=== PATIENT | female | born 1990 | race Caucasian/White ===

== ENCOUNTER → 2017-11-03 07:55 | Outpatient (CLI) | payer OTHER, SELFPAY ==
[2017-11-09 14:23] LABS: HPV Reflexed? NOT INDICATED
== END ==
PROVIDERS: Visit Provider Obstetrics & Gynecology
DX: Z12.4 Encounter for screening for malignant neoplasm of cervix (principal)
CPT/HCPCS: 88175; G0145

== ENCOUNTER → 2019-05-02 | Outpatient (CLI) | payer OTHER, SELFPAY ==
[2019-05-02 18:08] LABS: Chlamydia Trachomatis by PCR Negative (Negative); Neisserai gonorrhoeae by PCR Negative (Negative); Probe Check PASS; Sample Adequacy Control PASS; Specimen Processing Control PASS
== END | disposition home or self-care (01) ==
LOC: LABSPEC 15:49
PROVIDERS: Visit Provider Obstetrics & Gynecology
DX: Z11.3 Encounter for screening for infections with a predominantly sexual mode of transmission (principal)
CPT/HCPCS: 87491; 87591

== ENCOUNTER → 2019-05-18 16:07 | Outpatient (CLI) | payer OTHER, SELFPAY ==
[2019-05-18 16:57] LABS: Color, Urine Yellow (Yellow); Glucose, Dipstick Normal (Normal); Ketone-Dipstick Negative (Negative); Leukocyte Esterase-Dipstick Negative /ul (Negative); Nitrite-Dipstick Negative (Negative); Occult Blood-Urine Negative /ul (Negative); Protein-Dipstick Negative (Negative); Urine Bilirubin Dipstick Negative (Negative); Urine Clarity Clear (Clear); Urine Urobilinogen Normal (Normal)
[2019-05-18 17:01] LABS: Absolute Lymphocyte Count 1.97 X10^3/uL (0.83-4.51); Absolute Neutrophil Count 9.7 X10^3/uL (2.0-7.7); Basophil# 0.03 X10^3/uL; Basophil% 0.2 % (0-1); Eosinophil# 0.08 X10^3/uL; Eosinophils% 0.6 % (0-5); Hematocrit 39.4 % (37-47); Lymphocyte # 1.97 X10^3/ul (4.0); Lymphocyte % 15.6 % (19-41); Mean Corpuscular Hgb 27.5 pg (27.0-32.0); Mean Corpuscular Volume 83.5 fL (81-99); Mean Platelet Vol. 9.9 fl (6.2-12.0); Monocyte# 0.83 X10^3/uL; Monocyte% 6.6 % (0-10); NRBC Flagged by Analyzer 0 % (0-5); Neutrophil # 9.68 X10^3/uL (2.7-7.7); Neutrophil % 76.8 % (47-70); Platelet Count 263 K/mm3 (150-450); RBC Distribution Width CV 13.4 % (11.6-14.6); RBC Distribution Width SD 40.8 fl (35.1-43.9); Red Blood Count 4.72 M/mm3 (4.2-5.4); White Blood Count 12.6 K/mm3 (4.4-11.0)
[2019-05-18 17:11] LABS: Amphetamine Urine VISTA NEGATIVE (<1000 ng/mL); Barbiturate Urine VISTA NEGATIVE (< 200 ng/mL); Benzodiazepine Urine VISTA NEGATIVE (< 200 ng/mL); Cocaine Urine VISTA NEGATIVE (< 300 ng/mL); Ecstacy Urine VISTA NEGATIVE (< 500 ng/mL); Methadone Urine VISTA NEGATIVE (< 300 ng/mL); PCP Urine VISTA NEGATIVE (< 25 ng/mL); THC Urine VISTA NEGATIVE (< 50 ng/mL); Vista UDS pH Range 6
[2019-05-18 17:32] LABS: Thyroid Stim Hormone (TSH) 0.67 uIU/mL (0.358-3.74)
[2019-05-19 00:26] LABS: Prenatal RPR NONREACTIVE (NONREACTIVE)
[2019-05-19 09:24] LABS: HIV - WCH Non-Reactive (Nonreactive); Hepatitis B Surface Antigen Non-Reactive (Nonreactive); Hepatitis C Antibody Non-Reactive (Nonreactive); Rubella IgG 88.4 IU/mL; Vitamin D,25 Hydroxy 23.2 ng/mL
== END ==
PROVIDERS: Visit Provider Obstetrics & Gynecology
DX: Z34.81 Encounter for supervision of other normal pregnancy, first trimester (principal)
CPT/HCPCS: 36415; 80307; 81002; 82306; 84443; 85025; 86703; 86762; 86803; 87340

== ENCOUNTER → 2019-09-27 08:43 | Outpatient (CLI) | payer OTHER, SELFPAY ==
[2019-09-27 10:46] LABS: Hematocrit 34.5 % (37-47); Hemoglobin 11.3 g/dL (12.0-15.0); Mean Corp Hgb Conc 32.8 g/dL (32-36); Mean Corpuscular Hgb 29.7 pg (27.0-32.0); Mean Corpuscular Volume 90.8 fL (81-99); Mean Platelet Vol. 9.8 fl (6.2-12.0); Platelet Count 196 K/mm3 (150-450); RBC Distribution Width CV 13.1 % (11.6-14.6); RBC Distribution Width SD 42.6 fl (35.1-43.9); White Blood Count 10.3 K/mm3 (4.4-11.0)
[2019-09-27 10:55] LABS: Glucose Challenge Gest 1H 50g 103 mg/dL (70-140)
[2019-09-27 10:58] LABS: Vitamin D,25 Hydroxy 50.6 ng/mL
== END ==
PROVIDERS: Visit Provider Obstetrics & Gynecology
DX: Z34.82 Encounter for supervision of other normal pregnancy, second trimester (principal)
CPT/HCPCS: 36415; 82306; 82950; 85027; 86850

== ENCOUNTER 2019-11-29 17:45 | Inpatient (IN) | payer OTHER, SELFPAY ==
[2019-11-29] VITALS (10 sets, daily range): BP systolic 93–119; BP diastolic 55–75; PULSE 59–76; TEMP 36.8–37.9; O2SAT 97–98; BMI 24.3
[2019-11-29 17:47] LABS: ROM Internal Control Test YES-OK TO RESULT pt. (Internal QC)
[2019-11-29 17:48] LABS: ROM Patient Test POSITIVE (Negative)
[2019-11-29] MEDS: 0.9% Saline Lock 10 ML Syringe IV ×2 (18:25→23:02)
[2019-11-29 18:43] LABS: Absolute Neutrophil Count 8.9 X10^3/uL (2.0-7.7); Basophil# 0.02 X10^3/uL; Basophil% 0.2 % (0-1); Eosinophil# 0.03 X10^3/uL; Eosinophils% 0.2 % (0-5); Hematocrit 40.1 % (37-47); Hemoglobin 13.6 g/dL (12.0-15.0); Lymphocyte % 17.5 % (19-41); Mean Corp Hgb Conc 33.9 g/dL (32-36); Mean Corpuscular Hgb 28.9 pg (27.0-32.0); Mean Corpuscular Volume 85.3 fL (81-99); Mean Platelet Vol. 10.2 fl (6.2-12.0); Monocyte# 0.94 X10^3/uL; Monocyte% 7.8 % (0-10); NRBC Flagged by Analyzer 0 % (0-5); Neutrophil # 8.88 X10^3/uL (2.7-7.7); Neutrophil % 73.8 % (47-70); Platelet Count 219 K/mm3 (150-450); RBC Distribution Width CV 12.5 % (11.6-14.6)
[2019-11-29 19:58] LABS: Group B Strep DNA By PCR Negative (Negative); Internal Control PASS; Probe Check PASS; Specimen Processing Control PASS
--- NOTE | 2019-11-29 20:27 | PCM.HPOB.BLA ---
<Emelia Diehl - Last Filed: 12/01/19 06:48> - Problem List (1) 36 weeks gestation of Status: Acute (2) Spontaneous rupture of amniotic membranes Status: Acute History and Physical Date of Admission: 11/29/19 AC ANTEPARTUM RECORD - HISTORY AND PHYSICAL (11/29/2019) Name: KARENA JULIAN OB Physician: SILVESTRE 's Physician: PED ELECTRIC LINEMAN ...................................................................... : 1990 Age: 29 Address: [address] [place] [address] Phone: H) [phone] Insurance Carrier: [facility] ([place], [place]) [id number] Emergency Contact: GISELL IESHA [phone] ...................................................................... This is a 29y old presenting at 36w6d with SROM today at approximately 1500. has been uneventful. Final SOBIA: 12/21/19 By Ultrasound: 9 weeks 0 days PARITY: (G-Total Pregnancies P-Fullterm,Premature,Induced AB,Spont AB, Ectopics, Multiple,Living) SOBIA CONFIRMATION: By LMP: 03/16/19 By First Ultrasound Exam: 12/18/19 Final SOBIA: 12/21/19 BLOOD TYPE: O negative GBS: pending 1H GTT: 103 Rublla titer (>10 immune)-- immune Hepatatis B lillian AG/Hepatitis C AB/HIV/RPR-- non-reactive CULTURES: GBS pending, GC/CT-negative OB PROBLEM LIST: Encouraged childbirth and classes EPDS = 3 has a neice born with cleft palate 's niece and nephew born with Craniosynostosis Rh negative and Rhogam given 09/27/19 Vitamin D deficiency, added 4000iu OTC daily, to recheck with 28wk labs WANTS AFP, declines CF testing -Declines MSAFP on 07/12/19 ALLERGIES: No Known Drug Allergies MEDICATIONS: Supplement (s) [No Strength] [employer] PNV Vitamin D3 4,000 unit capsule Take one a day SOCIAL HISTORY: Smoking - Never Alcohol Use - denies drinking Diet - balanced Diet Lifestyle - Exercise - regular 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 Illicit Drug Use - denies use of street drugs Sexual Activity - Residence - lives with Place of - [place], [place] Hours Worked - FT Spouse-Sig Other Name - Gisell Spouse-Sig Other Occupation - Sales for [employer] Spouse-Sig Other Phone No - [phone] PRIOR DELIVERY HISTORY DEL DATE GEST LAB WT LB WT OZ TYPE ANES LABOR TX ANTEPARTUM FLOW CHART VISIT GE RTC FU F F AZ U U DATE WK MD WKS HT PN HR M SS BP ED WT AZ GL D EF ST __ ____ ___ __ __ ___ __ __ __ ___ __ __ __ ___ __ 08 Nov SHM 1 36 V + + 102/46 0 133 tr - Oct SHM 2 33 + + 118/60 0 131 - - 11 Nov 13 SHM 2 30 + + 116/68 0 130 - - 28 Oct 11 SHM 2 29 V + + 110/58 0 130 - - 14 Oct 09 SHM 4 28 ? + + 96/58 0 128 - 2+ Sep 06 SHM 4 26 ? + + 110/70 0 127 tr - August 02 SHM 4 20 + + 110/78 0 123 tr - Jun 29 SHM 4 16 V + + 120/64 0 123 tr - Jun 27 SHM 2 on O 114/66 0 119 31 May 25 CH 4 + 112/62 118 04 May 22 SHM 4 ? on 116/73 0 118 - - ANTEPARTUM NOTE(S): Nov 22 2019: feeling well. Nov 11 2019: see note Oct 24 2020: Oct 11 2019: no complaints expressed Sep 26 2020: see note Sep 05 2020: glucola given August 08 2020: comp u/s today Jul 12 2019: doing well, declines MSAFP testing Jun 23 2020: Jun 13 2020: May 17 2020: COMPREHENSIVE ANTEPARTUM NOTE(S): Nov 22 2019: Independence Frausto improved from prior. Started packing her hospital bag. Has male and female names picked out. No complaints. Defer GBS to next week as she is 35.6 today. Nov 11 2019: Karena is here for visit. She has noticed more cramping since going back to school. Rest and increased po fluids help. Reviewed PTL. States no sx of PTL. FM and SROM reviewed. GBS next visit with pelvic exam. LMT Nov 11 2019: Reviewed adequate hydration, emptying bowel and bladder as needed to reduce potential Independence-Frausto precautions. PTL precautions. GBS next visit. Oct 25 2019: Karena is here for visit at 31.6 w gest. Feeling well. Baby active. Took last week's office Class. Sleeping well. No c/o. DRC Oct 25 2019: PTL, FM precautions. Discussed vacuum indications, risks, benefits, role of C/S as alternative for vacuum indications. Oct 11 2019: Karena is here for a PNV. She is doing great. Good FM. No edema noticed. No complaints or concerns expressed at this time. MK Oct 11 2019: Reviewed normal glucola, cbc. Plans Tdap . Sep 27 2019: Karena is here for a PNV. 28 week labs drawn today. Good FM. 0 edema. Pt states that she felt like passing out on her way here, most likely from the Glucola drink. No other complaints or concerns. MK Sep 27 2019: Rhogam is given today. LMT Sep 27 2019: PTL, FM precautions. Discussed childbirth spacing and PPBC, condoms planned. Glucola, Rhogam today. Sep 06 2019: Discussed labor analgesia. Considering epidural in labor. Sleeping ok. Reviewed Rh negative, indications for Rhogam. Independence Frausto discussed. Aug 09 2019: SEX UNKNOWN. EFW 85th%. Posterior placenta, ok for . Discussed round ligament pain, safe sleep. Has daily FM. Jul 12 2019: Karena reports that she and decided not to have MSAFP. Declines today 07/12/19. LMT Jul 12 2019: No further spotting or bleeding. No clot visualized on US today. Fetus active, FHR 156bpm. Discussed movement, anticipated weight gain 25-35#. Jun 24 2019: Karena is feeling better with less nausea. Occassional cramping, brown spotting. Has not had IC. US prior to this visit. Drinkng water very well. kbm Jun 24 2019: US confirms FHR wnl, perigestational bleed abutting cervix 2.5cm. Appears clotted. Bleeding precautions reviewed. Maintain pelvic rest, low impact and low to moderate intensity physical activity only. Jun 14 2019: Karena is here for nurse visit to for viability. Noticed some spotting after running home in the rain. Light pinkish to brown spotting noted. Resolved now. FHT's easily obtained in the 160's. She is asking since she is here may she be seen instead of telehealth visit tomorrow? Ok per CH and she will see her in office today. LMT Jun 14 2019: Came in today for FHR check and changed until today. Was having spotting over the weekend after a heavy run and was worried. FHR found today very easily and reassured. 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 Has been able to lounge around and take it easy. Reviewed first trimester labs being WNL with exception of low Vitamin D. Will start taking 4000iu OTC and will recheck at 28wk labs. O negative blood type with rhogam needed at 28 wks and PP. Discussed in length antibodies if baby is + and needing protection for future pregnancies. Reports eczema is better with the sunlight. Discussed a happy lamp if needed to see if that could help and the vit D might actually have benefits for her skin. May or may not want additional genetic testing at 16 weeks. Will let us know at the beginning of her appt. To have appt in 4 weeks and as a first time mom would prefer it to be in person to be able to get FHR check since likely wont be having FM yet. Reviewed office still being open and nurse triage line with provider sales operations associate 06/10. Left feeling a lot better and very grateful for appt - May 18 2019: Karena is here for her NOB visit at 9 w 0 d, she is a with an SOBIA of 12/21/2019. , Gisell, accompanies her today; they are both happy about the and excited to have had an US today. Delivery at [facility] is planned, she is undecided about an epidural, and she will breastfeed. Office and childbirth classes discussed and encouraged. Office practice patterns discussed, including labs that will be collected today. Emergencies/danger signs to report, round ligament pain, how to contact the office after hours, reporting a suspected UTI, and common OTC medications approved/not approved for use during . Karena states that she has some occasional nausea, but states that as long as she eats every few ours, she does pretty well. Denies emesis. Encouraged to continue small frequent meals with protein included throughout the day. try carb rich foods when nauseated, and to drink at least one gallon of water per 24 hours. Karena is a life long non-smoker, and she denies use of drugs or ETOH. She takes an OTC vitamin containing DHA and states that she is tolerating this well. Genetic Screening form completed, Gisell has a niece with Cleft Palate, and a niece and nephew (siblings) born with Craniosynostosis. She wants to have AFP drawn, and declines CF testing; consent signed as such. Karena denies a hx of depression or anxiety. EPDS today = 3. Karena works out 3-4 times a week, reviewed lifting restrictions, and exercise guidelines. Kegel exercises and how/why to do them explained. water and dietary needs reviewed, including caloric needs, recommended weight gain, limiting empty calories, and limiting caffeine to one cup a day. Printed guide for food safety during provided with review. Karena eats a well balanced diet, and drinks water exclusively. She states that she understands all information provided during NOB visit, and that she has no questions following same. AW May 18 2019: labs for drawn reviewed. Plans msAFP, Quad screen. May 02 2019: Karena is being seen for missed menses visit. First . LMP 1--20. Pt is about 6 weeks and 5 days. SOBIA 10-7-20. Pap due . Cultures sent on urine. Medications and allergies are up to date. information given and Emelia Diehl to review. AM May 02 2019: Missed menses appointment today with +UPT in office. Known LMP of 1--20 giving her an SOBIA of 10-7-20 with GA 6w4d. This is her first . She already taking prenatals and is a non-smoker. Practice orientation, midwifery care with OB collaboration, missed menses packet reviewed and well as client services coordinator packet. Will bring supplements in to review with provider at next visit. Will return in 2 weeks for dating US, NOB RN visit, labs and PNV. - Mar 11 2019: Karena is being seen for annual. LMP 12--19. Menses monthly and regular. Last pap 2018 WNL. Pt states she would like to discuss . She has hx of low progesterone. Depression screening total is 1. Medications and allergies are up to date. AM Mar 11 2019: as above. Previously saw religious leader who diagnosed low progesterone and pt took daily progesterone kirby. She is uncertain as to the etiology. Reports low progesterone symptoms however have resolved since then and she has not used supplementation for some time. Continues exercising regularly, is not running in the winter however. Eats well balanced diet of whole foods. Started MVI. No plans for travel and no recent travel. No animals at home. [facility] REVIEW OF SYSTEMS: GENERAL - Denies fever, or chills SKIN - Denies rash, new skin lesions, or change in moles EYES - Denies blurred vision, or change in visual acuity EARS - Denies ear pain, or difficulty hearing NOSE - Denies nasal congestion, discharge, or bleeding MOUTH - Denies sore throat, or difficulty swallowing NECK - Denies pain or swelling RESPIRATORY - Denies shortness of breath, cough, wheezing CARDIOVASCULAR - Denies palpitations, chest pain, orthopnea, PND, peripheral edema, syncope or claudication GASTROINTESTINAL - Denies nausea, vomiting, diarrhea, constipation, Denies abdominal pain, melena and or bright red blood GENITOURINARY - Denies dysuria, frequency of urination, urgency, or hesitancy MUSCULOSKELETAL - Denies joint or muscle pain, or back pain NEUROLOGICAL - Denies localized numbness, weakness, or tingling PSYCHIATRIC - Denies depression, anxiety, substance abuse or suicide attempts ENDOCRINE - Denies heat or cold intolerance, weight loss or gain, increasing thirst HEMATO-IMMUNOLOGIC - Denies easy bruising, bleeding, oral ulcerations or recurrent infections GENETICS SCREENING: Age 35+ years: No Thalassemia: No Neural Tube Defect: No Down Syndrome: No SIMRAN-SACHS: No Sickle Cell Disease: No Hemophilia: No Musc. Dystrophy: No Cystic Fibrosis: No-declines screening [place]arrant Chorea: No Mental Retardation: No Fragile X: No Other genetic: FOB's niece cleft palate Other defects: FOB's niece cleft palate SABs/still births: No Drugs since LMP: No INFECTION HISTORY: High risk AIDS: No High risk Hepatitis: No Exposed to TB: No Exposed to Herpes: No Rash/viral illness since LMP: No History of STD: No MENSTRUAL HISTORY: *Menses Amount/Duration: 6 daysMenses Regularity: regularFrequency: monthlyMenarche (Age Onset): 12* PAST SUMMARY: PARITY: 1. Total Pregnancies............ 1 2. Full Term Pregnancies........ 0 3. Premature.................... 0 4. Abortions - Induced.......... 0 5. Abortions - Spontaneous...... 0 6. Ectopics..................... 0 7. Multiple Births.............. 0 8. Living Children.............. 0 GENERAL PHYSICAL EXAMINATION: 29y old female in no acute distress VS: VSS HEENT: NC/AT Heart: RRR without rubs or gallops Lungs: CTA x 2 Abdomen: Gravid PELVIC EXAMINATION: Per RN /50/-2 moderate posterior A/P: Admit with SROM at 1500. Clear fluid noted. GBS to be collected with antibiotic prophylaxis orders given. Plans in place for . <Aby Julian - Last Filed: 12/02/19 08:15> History and Physical Agreed with above documentation and plan. 29 yo at 36/6w admitted for premature rupture of membranes. uncomplicated otherwise.
[2019-11-29] MEDS: Oxytocin 30 units/NS 500 ml 30 UNITS/500 ML IV.SOLN IV (23:02)
[2019-11-29] MEDS: Lactated Ringers 1,000 ML 50 ML IV (23:02)
[2019-11-30] VITALS (25 sets, daily range): BP systolic 97–126; BP diastolic 53–75; PULSE 66–90; RESP 14–16; TEMP 36.4–37.2; O2SAT 94–99
[2019-11-30] MEDS: fentaNYL 100 MCG/2 ML Ampul IV ×4 (03:04→06:57)
[2019-11-30] MEDS: 0.9% Saline Lock 10 ML Syringe IV ×5 (03:04→06:57)
[2019-11-30] MEDS: Ondansetron 4 MG/2 ML Vial IV (05:29)
--- NOTE | 2019-11-30 07:49 | PCM.PN.OB ---
<Emelia Diehl - Last Filed: 12/01/19 06:49> Patient Problems: Active and Suspected Problems 36 weeks gestation of (Acute) Spontaneous rupture of amniotic membranes (Acute) Subjective: Having constant pressure and the urge to push. Pain is a 9/10 with contractions in her lower back. Objective: VSS. SVE 10/100/+2. UC Q1-4m. FHR baseline 135, +accels, variable decels, moderate variability - Physical Exam Vitals/I&O's: Vital Signs Temp Pulse Resp BP Pulse Ox 97.7 F L 69 14 114/69 97 12/01/19 03:52 12/01/19 03:52 12/01/19 03:52 12/01/19 03:52 11/30/19 11:36 Oxygen Delivery Method Room Air Weight: 60.328 kg Body Mass Index (BMI) 24.3 Intake and Output for Last 24 Hours 11/29/19 11/30/19 12/01/19 23:59 23:59 23:59 Intake Total 1.6 / 1.6 1905.10 / 1905.10 Output Total 400 / 400 900 / 900 Balance -398.4 / -398.4 1005.10 / 1005.10 General: Alert, Oriented x3, Cooperative HEENT: Atraumatic, PERRLA, EOMI, Normocephalic Neck: Supple, No JVD, Negative Carotid Bruits Lungs: Clear to auscultation, Normal air movement Cardiovascular: Regular rate, No murmurs Abdomen: Bowel Sounds Present, Soft, Non Tender, Gravid Extremities: No edema, Capillary Refill Less than 3 Seconds Skin: No rashes, No breakdown Musculoskeletal: No Tenderness to Palpation of Joints or Extremities Neurological: Cranial nerves II-XII grossly intact Psych/Mental Status: Normal Affect, Appropriate Laboratory Results 11/30/19 12:00: Screen NEGATIVE, Baby's Blood Type O POSITIVE, Baby's CHUNG NEGATIVE Current Medications Acetaminophen (Tylenol) 1,000 mg PO Q8H PRN PRN PRN Reason: Pain Score 1-3/10 Last Admin: 12/01/19 00:07 Dose: 1,000 mg Documented by: Bisacodyl (Dulcolax) 10 mg RECTAL UD PRN PRN Reason: If no BM Dibucaine (Dibucaine) 1 applic TOPICAL TID PRN PRN; Protocol PRN Reason: Discomfort Hydrocortisone (Hytone) 1 applic TOPICAL TID PRN PRN; Protocol PRN Reason: Discomfort Ibuprofen (Motrin) 600 mg PO Q6H PRN PRN PRN Reason: Pain Score 1-3/10 Last Admin: 12/01/19 06:12 Dose: 600 mg Documented by: Methylergonovine Maleate (Methergine) 0.2 mg IM X1 PRN PRN Reason: Excess bleeding/uterine atony Ondansetron HCl (Zofran) 4 mg IV Q4H PRN PRN PRN Reason: Nausea Oxycodone HCl (Oxyir) 5 - 10 mg PO Q4H PRN PRN PRN Reason: Pain Score 4-10/10 Senna/Docusate Sodium (Senokot-S, Cindi-Colace) 1 - 2 tablet PO DAILY PRN PRN PRN Reason: Constipation Last Admin: 12/01/19 00:07 Dose: 2 tablet Documented by: Simethicone (Mylicon) 80 mg PO PCHS PRN PRN Reason: Indigestion/Stomach pain Sodium Chloride () 5 - 15 ml IV UD PRN PRN Reason: SALINE FLUSH Medical Necessity - Tobacco Use Smoking Status: Never smoker Assessment/Plan All Active Problems 36 weeks gestation of (Acute) Spontaneous rupture of amniotic membranes (Acute) A/P: at 37.0 weeks gestation SVE 10/100/+2 Laboring without pain medication, pain with contractions 10 UC 1-4m with Pitocin at 12u NST Category II Spontaneous urge to push Expect Attending: Dr. Dinorah Grajeda <Aby Grajeda - Last Filed: 12/02/19 08:13> - Physical Exam Vitals/I&O's: Vital Signs Temp Pulse Resp BP Pulse Ox 97.8 F 63 16 109/72 97 12/02/19 00:58 12/02/19 00:58 12/02/19 00:58 12/02/19 00:58 11/30/19 11:36 Oxygen Delivery Method Room Air Weight: 60.328 kg Body Mass Index (BMI) 24.3 Intake and Output for Last 24 Hours 11/30/19 12/01/19 12/02/19 23:59 23:59 23:59 Intake Total 1905.10 / 1905.10 Output Total 900 / 900 Balance 1005.10 / 1005.10 Microbiology Past 72 Hours 11/29/19 Unknown Genital vaginal Group B Streptococcus Culture - Preliminary Group B Beta Streptococcus is not isolated. Current Medications Acetaminophen (Tylenol) 1,000 mg PO Q8H PRN PRN PRN Reason: Pain Score 1-3/10 Last Admin: 12/02/19 05:34 Dose: 1,000 mg Documented by: Bisacodyl (Dulcolax) 10 mg RECTAL UD PRN PRN Reason: If no BM Dibucaine (Dibucaine) 1 applic TOPICAL TID PRN PRN; Protocol PRN Reason: Discomfort Hydrocortisone (Hytone) 1 applic TOPICAL TID PRN PRN; Protocol PRN Reason: Discomfort Ibuprofen (Motrin) 600 mg PO Q6H PRN PRN PRN Reason: Pain Score 1-3/10 Last Admin: 12/01/19 20:52 Dose: 600 mg Documented by: Methylergonovine Maleate (Methergine) 0.2 mg IM X1 PRN PRN Reason: Excess bleeding/uterine atony Ondansetron HCl (Zofran) 4 mg IV Q4H PRN PRN PRN Reason: Nausea Oxycodone HCl (Oxyir) 5 - 10 mg PO Q4H PRN PRN PRN Reason: Pain Score 4-10/10 Senna/Docusate Sodium (Senokot-S, Cindi-Colace) 1 - 2 tablet PO DAILY PRN PRN PRN Reason: Constipation Last Admin: 12/01/19 00:07 Dose: 2 tablet Documented by: Simethicone (Mylicon) 80 mg PO PCHS PRN PRN Reason: Indigestion/Stomach pain Sodium Chloride () 5 - 15 ml IV UD PRN PRN Reason: SALINE FLUSH Assessment/Plan Agreed with above documentation and plan.
[2019-11-30] MEDS: Oxytocin 30 units/NS 500 ml 30 UNITS/500 ML IV.SOLN 334 UNITS IV (09:33)
--- NOTE | 2019-11-30 09:57 | PCM.OPRPT ---
Vaginal Delivery Maternal Presentation: Active Labor, Spontaneous Rupture of Membranes Amniotic Membrane Rupture Type: Spontaneous at home Amniotic Fluid Description: Clear Final SOBIA: 12/21/19 Gestational age: 37 Weeks and 0 Days Date of Procedure: 11/30/19 Pre-Operative Diagnosis: premature rupture of membranes, lopez intrauterine Post-Operative Diagnosis: premature rupture of membranes, lopez intrauterine Surgery/ Procedure Performed: Spontaneous Vaginal Delivery Type of Anesthesia: None Description of Procedure: Delivery of viable female, in the vertex position. No nuchal cord. Baby to mom, cord clamped and cut. Spontaneous delivery of placenta. First degree laceration repaired in usual fashion, Right labial laceration repaired with single interrupted stitch. Hemostatic. Lidocaine used prior to repair. EBL 250cc Cord Vessel Description: 3 Vessels A gender: Female (1 minute): 8 (5 minute): 9 Medications given after delivery: IV Pitocin
--- NOTE | 2019-11-30 10:00 | DCINST_ITS ---
<Aby Grajeda - Last Filed: 11/30/19 10:00> Discharge Diet: No Restrictions Discharge Activity: Return to Normal Activity May resume sexual activity in: 6 weeks Weight Bearing Status: Weight bearing as tolerated Call your doctor if your incision/area has: Sudden Increased Bleeding, Increased Pain/ Swelling, Increased Redness, Foul Smelling Discharge Call your doctor if you observe: Fever of 101 or Higher, Inability to urinate, Inability to have a bowel movement, Using more than one pad per hour Additional Instructions: If you experience any of the following, contact your healthcare provider. * Bleeding that soaks a pad every hour for 2 hours * Fever 100.4 or higher * Unrelieved incision or abdominal pain * Swelling, redness, discharge or bleeding from your incision or episiotomy site * Your incision begins to separate * Problems urinating (including inability to urinate or burning while urinating). * Visual changes * Severe headache * Flu-like symptoms * Pain or redness in one of both of your breasts * Pain, warmth, tenderness or swelling in your legs, especially the calf area * Frequent nausea and vomiting * Symptoms of depression or anxiety If you experience any of the following, call 911 or go to the nearest Emergency Room. * Chest pain * Problems breathing * Seizure activity * Partial or complete paralysis of a body part, slurred speech, weakness or drooping of the face, or a sudden inability to walk or hold your balance Allergies/Adverse Reactions: Allergies No Known Allergies Allergy (Verified 11/29/19 17:06) Medications to take at Discharge Vit No.130/Iron/Folic [ Tablet] 1 ea PO DAILY 11/29/19 Please Follow Up With: Elma Richter MD - 6 weeks Primary Care Physician: Monika Arreola MD [Primary Care Provider] - Test Results: Test results from this visit will be discussed in further detail at your follow- up appointment, if applicable. Proposed Discharge Date: 12/01/19 <Arnold Grajeda - Last Filed: 12/01/19 07:04> Additional Instructions: If you experience any of the following, contact your healthcare provider. * Bleeding that soaks a pad every hour for 2 hours * Fever 100.4 or higher * Unrelieved incision or abdominal pain * Swelling, redness, discharge or bleeding from your incision or episiotomy site * Your incision begins to separate * Problems urinating (including inability to urinate or burning while urinating). * Visual changes * Severe headache * Flu-like symptoms * Pain or redness in one of both of your breasts * Pain, warmth, tenderness or swelling in your legs, especially the calf area * Frequent nausea and vomiting * Symptoms of depression or anxiety If you experience any of the following, call 911 or go to the nearest Emergency Room. * Chest pain * Problems breathing * Seizure activity * Partial or complete paralysis of a body part, slurred speech, weakness or drooping of the face, or a sudden inability to walk or hold your balance Test Results: Test results from this visit will be discussed in further detail at your follow- up appointment, if applicable.
[2019-11-30] MEDS: Ibuprofen 600 MG Tablet PO ×2 (10:30→20:09)
--- NOTE | 2019-11-30 15:53 | NURSING ---
1st degree perineal laceration, right labial laceration
[2019-12-01] MEDS: Senna/Docusate Sodium 1 Tablet PO (00:07)
[2019-12-01] MEDS: Acetaminophen 500 MG Tablet 1000 MG PO ×2 (00:07→17:25)
[2019-12-01 03:52] VITALS: BP 114/69; PULSE 69; RESP 14; TEMP 36.5
[2019-12-01] MEDS: Ibuprofen 600 MG Tablet PO ×2 (06:12→20:52)
--- NOTE | 2019-12-01 07:02 | PN.OBGYN_ITS ---
Patient Problems: Active and Suspected Problems 36 weeks gestation of (Acute) Spontaneous rupture of amniotic membranes (Acute) Subjective: Objective: No overnight complaints. Pain well controlled. - Physical Exam Vitals/I&O's: Vital Signs Temp Pulse Resp BP Pulse Ox 97.7 F L 69 14 114/69 97 12/01/19 03:52 12/01/19 03:52 12/01/19 03:52 12/01/19 03:52 11/30/19 11:36 Oxygen Delivery Method Room Air Weight: 133 lb Body Mass Index (BMI) 24.3 Intake and Output for Last 24 Hours 11/29/19 11/30/19 12/01/19 23:59 23:59 23:59 Intake Total 1.6 / 1.6 1905.10 / 1905.10 Output Total 400 / 400 900 / 900 Balance -398.4 / -398.4 1005.10 / 1005.10 General: Alert, Oriented x3, Cooperative, No apparent distress HEENT: Atraumatic, Normocephalic Oral: Moist Mucosa Neck: Supple Abdomen: Soft, Non Tender, Gravid - Fundus firm at umbilicus Psych/Mental Status: Alert and oriented to time, place, person, mood and affect Laboratory Results 11/30/19 12:00: Screen NEGATIVE, Baby's Blood Type O POSITIVE, Baby's CHUNG NEGATIVE Current Medications Acetaminophen (Tylenol) 1,000 mg PO Q8H PRN PRN PRN Reason: Pain Score 1-3/10 Last Admin: 12/01/19 00:07 Dose: 1,000 mg Documented by: Bisacodyl (Dulcolax) 10 mg RECTAL UD PRN PRN Reason: If no BM Dibucaine (Dibucaine) 1 applic TOPICAL TID PRN PRN; Protocol PRN Reason: Discomfort Hydrocortisone (Hytone) 1 applic TOPICAL TID PRN PRN; Protocol PRN Reason: Discomfort Ibuprofen (Motrin) 600 mg PO Q6H PRN PRN PRN Reason: Pain Score 1-3/10 Last Admin: 12/01/19 06:12 Dose: 600 mg Documented by: Methylergonovine Maleate (Methergine) 0.2 mg IM X1 PRN PRN Reason: Excess bleeding/uterine atony Ondansetron HCl (Zofran) 4 mg IV Q4H PRN PRN PRN Reason: Nausea Oxycodone HCl (Oxyir) 5 - 10 mg PO Q4H PRN PRN PRN Reason: Pain Score 4-10/10 Senna/Docusate Sodium (Senokot-S, Cindi-Colace) 1 - 2 tablet PO DAILY PRN PRN PRN Reason: Constipation Last Admin: 12/01/19 00:07 Dose: 2 tablet Documented by: Simethicone (Mylicon) 80 mg PO PCHS PRN PRN Reason: Indigestion/Stomach pain Sodium Chloride () 5 - 15 ml IV UD PRN PRN Reason: SALINE FLUSH Medical Necessity - Tobacco Use Smoking Status: Never smoker Assessment/Plan All Active Problems 36 weeks gestation of (Acute) Spontaneous rupture of amniotic membranes (Acute) day 1 no overnight complaints. Pain well controlled. Breast- feeding. PPROM at 36 weeks and 6 days if baby okayed by continuing education instructor patient okay to DC home today.
[2019-12-01 07:41] VITALS: BP 104/55; PULSE 66; RESP 16; TEMP 36.8
[2019-12-01 08:04] LABS: Hematocrit 31.2 % (37-47); Hemoglobin 10.7 g/dL (12.0-15.0); Mean Corp Hgb Conc 34.3 g/dL (32-36); Mean Corpuscular Hgb 30.1 pg (27.0-32.0); Mean Corpuscular Volume 87.6 fL (81-99); Mean Platelet Vol. 10.4 fl (6.2-12.0); Platelet Count 166 K/mm3 (150-450); RBC Distribution Width CV 12.9 % (11.6-14.6); RBC Distribution Width SD 40.8 fl (35.1-43.9); Red Blood Count 3.56 M/mm3 (4.2-5.4); White Blood Count 16.3 K/mm3 (4.4-11.0)
[2019-12-01 12:59] VITALS: BP 90/45; PULSE 79; RESP 18; TEMP 36.8
[2019-12-01 20:36] VITALS: BP 103/52; PULSE 66; RESP 16; TEMP 36.9
[2019-12-02 00:58] VITALS: BP 109/72; PULSE 63; RESP 16; TEMP 36.6
[2019-12-02] MEDS: Acetaminophen 500 MG Tablet 1000 MG PO (05:34)
--- NOTE | 2019-12-02 08:03 | PN.OBGYN_ITS ---
Patient Problems: Active and Suspected Problems 36 weeks gestation of (Acute) Spontaneous rupture of amniotic membranes (Acute) Subjective: PPD2 Objective: Feeling well. Lochia minimal. . - Physical Exam Vitals/I&O's: Vital Signs Temp Pulse Resp BP Pulse Ox 97.8 F 63 16 109/72 97 12/02/19 00:58 12/02/19 00:58 12/02/19 00:58 12/02/19 00:58 11/30/19 11:36 Oxygen Delivery Method Room Air Weight: 60.328 kg Body Mass Index (BMI) 24.3 Intake and Output for Last 24 Hours 11/30/19 12/01/19 12/02/19 23:59 23:59 23:59 Intake Total 1905.10 / 1905.10 Output Total 900 / 900 Balance 1005.10 / 1005.10 General: Oriented x3, No apparent distress HEENT: Atraumatic, Normocephalic Lungs: Normal air movement Abdomen: Soft - uterus 2 below umbilicus Extremities: No edema Psych/Mental Status: Normal Affect Microbiology Past 72 Hours 11/29/19 Unknown Genital vaginal Group B Streptococcus Culture - Preliminary Group B Beta Streptococcus is not isolated. Laboratory Results 12/01/19 07:40: WBC 16.3 H, RBC 3.56 L, Hgb 10.7 L, Hct 31.2 L, MCV 87.6, MCH 30.1, MCHC 34.3, RDW Std Deviation 40.8, RDW Coeff of Cash 12.9, Plt Count 166, MPV 10.4 Current Medications Acetaminophen (Tylenol) 1,000 mg PO Q8H PRN PRN PRN Reason: Pain Score 1-3/10 Last Admin: 12/02/19 05:34 Dose: 1,000 mg Documented by: Bisacodyl (Dulcolax) 10 mg RECTAL UD PRN PRN Reason: If no BM Dibucaine (Dibucaine) 1 applic TOPICAL TID PRN PRN; Protocol PRN Reason: Discomfort Hydrocortisone (Hytone) 1 applic TOPICAL TID PRN PRN; Protocol PRN Reason: Discomfort Ibuprofen (Motrin) 600 mg PO Q6H PRN PRN PRN Reason: Pain Score 1-3/10 Last Admin: 12/01/19 20:52 Dose: 600 mg Documented by: Methylergonovine Maleate (Methergine) 0.2 mg IM X1 PRN PRN Reason: Excess bleeding/uterine atony Ondansetron HCl (Zofran) 4 mg IV Q4H PRN PRN PRN Reason: Nausea Oxycodone HCl (Oxyir) 5 - 10 mg PO Q4H PRN PRN PRN Reason: Pain Score 4-10/10 Senna/Docusate Sodium (Senokot-S, Cindi-Colace) 1 - 2 tablet PO DAILY PRN PRN PRN Reason: Constipation Last Admin: 12/01/19 00:07 Dose: 2 tablet Documented by: Simethicone (Mylicon) 80 mg PO PCHS PRN PRN Reason: Indigestion/Stomach pain Sodium Chloride () 5 - 15 ml IV UD PRN PRN Reason: SALINE FLUSH Medical Necessity - Tobacco Use Smoking Status: Never smoker Assessment/Plan All Active Problems 36 weeks gestation of (Acute) Spontaneous rupture of amniotic membranes (Acute) PPD2 s/p . . Baby under lights for elevated bilirubin, check 9- 10 AM per pt. Home today if able with baby.
[2019-12-02] MEDS: Ibuprofen 600 MG Tablet PO (09:22)
[2019-12-02 10:22] VITALS: BP 118/76; PULSE 78; RESP 16; TEMP 36.7; O2SAT 99
[2019-12-02 12:26] VITALS: BP 123/70; PULSE 66; RESP 12; TEMP 37.3
== END 2019-12-02 14:00 | disposition home or self-care (01) | DRG 805 ==
LOC: OBT 17:51 → WP 17:51
PROVIDERS: Obstetrics & Gynecology; Admitting Provider Student in an Organized Health Care Education/Training Program; PCP Pediatrics; Referring Provider Student in an Organized Health Care Education/Training Program; Visit Provider Student in an Organized Health Care Education/Training Program
DX: O76 Abnormality in fetal heart rate and rhythm complicating labor and delivery (principal); O60.23X0 Term delivery with preterm labor, third trimester, not applicable or unspecified; Z37.0 Single live birth; O42.913 Preterm premature rupture of membranes, unspecified as to length of time between rupture and onset of labor, third trimester; O99.283 Endocrine, nutritional and metabolic diseases complicating pregnancy, third trimester; E55.9 Vitamin D deficiency, unspecified; O70.0 First degree perineal laceration during delivery; Z3A.37 37 weeks gestation of pregnancy
CPT/HCPCS: 59025; 59050; 84112; 85025; 85027; 85461; 86850; 86900; 86901; 87081; 87653; 90384; 99218; J7120; A4216; G0378; J2405; J2790